=== PATIENT | male | born 1965 | race Caucasian/White ===

== ENCOUNTER 2022-05-07 10:45 | Emergency (ER) | payer MEDICARE, SELFPAY ==
[2022-05-07 10:53] VITALS: PULSE 115; RESP 18; TEMP 36.8; O2SAT 96; BMI 29.5
--- NOTE | 2022-05-07 11:16 | ED_ITS ---
HPI - Abdominal Pain General: Chief Complaint: Abdominal Pain Stated Complaint: back, abd pain Time Seen by Provider: 05/07/22 10:58 Source: patient Mode of arrival: ambulatory Limitations: no limitations History of Present Illness: 57yo male complaints of abd pain that radiates into his back. No chest pain or shortness of breath. He has not been taking any of his medications. He is supposed to be on a PPI. He has not noticed anything that exacerbates or relieves. No hematemesis coffee-ground emesis no medic easy melena. MD elicited complaint: abdominal pain Pertinent past history: none Onset (ago): minute(s) Pain Consistency: constant Location: None Severity: mild Quality: cramping Radiation: none Exacerbating factors: nothing Relieving factors: nothing Associated Symptoms: Denies anorexia, belching, bloating, change in bowel habits, change in stool character, chills, coffee ground emesis, constipation, GI cramping, diarrhea, dyspepsia, dysuria, excessive flatus, fever(s), hea rtburn, hematochezia, hematuria, hematemesis, fecal incontinence, loose stools, melena, nausea, poor appetite, syncope and vomiting Review of Systems Const: Denies: fever(s), chills, fatigue or malaise ENMT: Denies: throat pain, ear or mastoid pain, nasal discharge or nasal congestion Card: Denies: chest pain or syncope Resp: Denies: dyspnea, productive cough or non-productive cough GI: Reports: abdominal pain; Denies: nausea, vomiting, hematemesis, coffee ground emesis, heartburn, diarrhea, constipation, bloating, GI cramping, belching, excessive flatus, fecal incontinence, change in bowel habits, change in stool character, hematochezia or melena : Denies: flank pain, difficulty urinating, dysuria, urinary frequency, urinary urgency or hematuria Skin/Breast: Denies: rash or pruritus PFSH ED PFSH: Medical History (Updated 05/18/22 @ 06:44 by Priyank Mackay DO) Diabetes Dyspepsia Physical Exam Const: COMMON NORMALS: no acute distress GENERAL APPEARANCE: cooperative and comfortable ORIENTATION/CONSCIOUSNESS: Yes awake, Yes oriented to person, Yes oriented to place and Yes oriented to time HENMT: COMMON NORMALS: normocephalic, atraumatic, hearing grossly normal bilaterally, external ears normal, EAC's normal, TM's normal bilaterally, Normal nasal mucous membranes and turbinates present, moist oral mucous membranes and oropharynx normal HEAD & SCALP: normocephalic and atraumatic NOSE: Normal nasal mucous membranes and turbinates present EXTERNAL EAR: Yes external ears normal EXTERNAL AUDITORY CANAL: EAC's normal TYMPANIC MEMBRANE: TM's normal bilaterally Eye: COMMON NORMALS: Equal, round and reactive pupils present, EOMs intact bilaterally, conjunctivae normal and no scleral icterus CONJUNCTIVA: Yes conjunctivae normal PUPIL: Yes Equal, round and reactive pupils present Neck/C-Spine: COMMON NORMALS: full ROM, no lymphadenopathy, supple and no JVD Lymph: LYMPHATIC: no lymphadenopathy noted and no lymphedema noted Resp: COMMON NORMALS: normal respiratory effort, No retractions, No use of accessory muscles and clear to auscultation bilaterally AUSCULTATION: clear to auscultation bilaterally Cardio: COMMON NORMALS: no JVD, regular rate, regular rhythm and No murmurs present (Cardio) RATE: regular rate RHYTHM: regular rhythm GI: COMMON NORMALS: Soft to palpation and No hepatosplenomegaly present AUSCULTATION: Yes normoactive bowel sounds PALPATION: Yes Soft to palpation, No Tenderness to palpation present (GI), No Guarding due to palpation present (GI) and Yes No hepatosplenomegaly present Extremity: COMMON NORMALS: normal to inspection, capillary refill normal, no clubbing, cyanosis or edema, no calf tenderness and no pedal edema Neuro: SENSORIUM/ORIENTATION: Yes oriented to person, Yes oriented to place and Yes oriented to time Skin: COMMON NORMALS: no rashes or lesions noted GENERAL SKIN EXAM: no rashes or lesions noted Course Vital Signs: Vital signs: Vital Signs Temperature 98.2 F 05/07/22 10:53 Pulse Rate 69 05/07/22 15:03 Respiratory Rate 18 05/07/22 15:03 Blood Pressure 117/72 05/07/22 11:30 Pulse Oximetry 97 05/07/22 11:30 Oxygen Delivery Me thod 05/07/22 11:30 MDM - Abdominal Pain Medical Decision Making Follow-up with primary care for further evaluation. Labs and imaging reviewed. Medical Records I reviewed the patient's medical records. Lab Data : 05/07/22 11:39 05/07/22 11:39 Labs/Radiology: Laboratory Results WBC 5.9 10^3/uL (4.0-10.0) 05/07/22 11:39 RBC 4.99 10^6/uL (4.1-5.3) 05/07/22 11:39 Hgb 15.9 g/dL (11.7-16.6) 05/07/22 11:39 Hct 47.6 % (42.0-52.0) 05/07/22 11:39 MCV 95.4 fl (80-94) H 05/07/22 11:39 MCH 31.9 pg (28.0-34.0) 05/07/22 11:39 MCHC 33.4 g/dL (30.0-36.0) 05/07/22 11:39 RDW 12.6 % (12.1-15.1) 05/07/22 11:39 Plt Count 180 10^3/cmm (130-400) 05/07/22 11:39 MPV 11.0 fL (7.4-10.4) H 05/07/22 11:39 Neut % (Auto) 41.9 % 05/07/22 11:39 Lymph % (Auto) 45.0 % 05/07/22 11:39 Crowley % (Auto) 11.4 % 05/07/22 11:39 Eos % (Auto) 0.5 % 05/07/22 11:39 Baso % (Auto) 0.7 % 05/07/22 11:39 Neut # (Auto) 2.46 10^3/uL (1.8-7.7) 05/07/22 11:39 Lymph # (Auto) 2.6 10^3/uL (0.8-4.8) 05/07/22 11:39 Crowley # (Auto) 0.7 10^3/uL (0.2-0.9) 05/07/22 11:39 Eos # (Auto) 0.0 10^3/uL (0.0-0.8) 05/07/22 11:39 Baso # (Auto) 0.0 10^3/uL (0.0-0.1) 05/07/22 11:39 Nucleated RBC % (auto) 0 % 05/07/22 11:39 Nucleated RBCs # 0.0 /100WBC 05/07/22 11:39 Sodium 135 mmol/L (136-145) L 05/07/22 11:39 Potassium 4.9 mmol/L (3.5-5.1) 05/07/22 11:39 Chloride 97 mmol/L (98-107) L 05/07/22 11:39 Carbon Dioxide 28 mmol/L (22-29) 05/07/22 11:39 Anion Gap 14.9 (5-19) 05/07/22 11:39 BUN 12 mg/dL (6-20) 05/07/22 11:39 Creatinine 0.8 mg/dL (0.7-1.2) 05/07/22 11:39 GFR Calculation 100.4 mL/min (90-130) 05/07/22 11:39 Glucose 337 mg/dL (65-115) H 05/07/22 11:39 Calculated Osmolality 293 mOsm/kg (285-295) 05/07/22 11:39 Calcium 9.0 mg/dL (8.5-10.5) 05/07/22 11:39 Total Bilirubin 0.3 mg/dL (0.15-1.2) 05/07/22 11:39 AST 18 U/L (0-40) 05/07/22 11:39 ALT 14 U/L (0-41) 05/07/22 11:39 Alkaline Phosphatase 112 U/L (40-130) 05/07/22 11:39 Troponin T Gen 5 ng/L 15 ng/L (0-15) 05/07/22 16:56 Total Protein 6.4 g/dL (6.6-8.7) L 05/07/22 11:39 Albumin 4.1 g/dL (3.5-5.2) 05/07/22 11:39 Globulin 2.3 g/dL (1.3-4.6) 05/07/22 11:39 Lipase 20 U/L (13-60) 05/07/22 11:39 Urine Color Yellow (Yellow) 05/07/22 13:29 Urine Appearance Clear (CLEAR) 05/07/22 13:29 Urine pH 5 (5-7) 05/07/22 13:29 Ur Specific Douglas 1.015 (1.005-1.030) 05/07/22 13:29 Urine Protein Neg (Negative) 05/07/22 13:29 Urine Glucose (UA) 4+ (Normal) H 05/07/22 13:29 Urine Ketones Negative (Negative) 05/07/22 13:29 Urine Blood Neg (Negative) 05/07/22 13:29 Urine Nitrate Negative (Negative) 05/07/22 13:29 Urine Bilirubin Neg (Negative) 05/07/22 13:29 Urine Urobilinogen 1 mg/dL (Negative) H 05/07/22 13:29 Ur Leukocyte Esterase Negative (Negative) 05/07/22 13:29 Discharge Plan Discharge Patient Disposition: Home Clinical Impression: Diabetic gastroparesis Condition: Stable Prescriptions: New Protonix 40 mg tablet,delayed release (DR/EC) 40 mg PO DAILY Qty: 30 0RF Discharge Orders: Discharge ED (Routine); Ordered 05/07/22 Ordered By: Priyank Mackay Referrals: Taina Hansen APN [Primary Care Provider] - Discharge Diet: Usual diet Discharge Activity: Resume usual activity Patient Instructions: Opioid Safety Activity Restrictions/Additional Instructions: Up with primary care within the next week Coding Level of Care Code ED Internet Marketing Manager for [employer]
[2022-05-07 11:30] VITALS: BP 117/72; PULSE 74; RESP 15; O2SAT 97
--- NOTE | 2022-05-07 11:33 | ECG_ITS ---
[facility] [place] Date: 2022-05-07 Pat Name: Chema Murray Department: Room: Gender: Male Manager Of International: : 1965 Requested By: Priyank Ortiz Order Number: [id number] Justino MD: Tanya Hammer M.D. Measurements Intervals [place] Rate: 76 P: 60 CT: 138 QRS: 79 QRSD: 99 T: 60 QT: 385 QTc: 434 Interpretive Statements SINUS RHYTHM Compared to ECG 02/10/2015 05:34:38 Indeterminate axis no longer present Incomplete right bundle-branch block no longer present Myocardial infarct finding no longer present Electronically Signed On 05-08-2022 13:07:53 CDT by Tanya Hammer M.D. [id number]
[2022-05-07 11:55] LABS: Basophils % 0.7 %; Eosinophils % 0.5 %; Hematocrit 47.6 % (42.0-52.0); Hemoglobin 15.9 g/dL (11.7-16.6); Lymphocytes # 2.6 10^3/uL (0.8-4.8); Mean Corpuscular HGB Conc 33.4 g/dL (30.0-36.0); Mean Corpuscular Hemoglobin 31.9 pg (28.0-34.0); Mean Corpuscular Volume 95.4 fl (80-94); Monocytes # 0.7 10^3/uL (0.2-0.9); Monocytes % 11.4 %; Neutrophils # 2.46 10^3/uL (1.8-7.7); Neutrophils % 41.9 %; Nucleated Red Blood Cells % 0 %; Platelet Count 180 10^3/cmm (130-400); Red Blood Count 4.99 10^6/uL (4.1-5.3); Red Cell Distribution Width 12.6 % (12.1-15.1); White Blood Count 5.9 10^3/uL (4.0-10.0)
[2022-05-07] MEDS: sodium chloride 0.9% 1,000 ML 999 ML IV ×3 (12:04→14:13)
[2022-05-07 12:19] LABS: Alanine Aminotransferase 14 U/L (0-41); Albumin Level 4.1 g/dL (3.5-5.2); Alkaline Phosphatase 112 U/L (40-130); Anion Gap 14.9 (5-19); Aspartate Amino Transferase 18 U/L (0-40); Blood Urea Nitrogen 12 mg/dL (6-20); Carbon Dioxide 28 mmol/L (22-29); Chloride 97 mmol/L (98-107); Creatinine Clr Calc Pharmacy 116.1478; Globulin 2.3 g/dL (1.3-4.6); Glomerular Filtration Rate 100.4 mL/min (90-130); Glucose 337 mg/dL (65-115); Lipase 20 U/L (13-60); Osmolality Calculated 293 mOsm/kg (285-295); Potassium 4.9 mmol/L (3.5-5.1); Sodium 135 mmol/L (136-145); Total Bilirubin 0.3 mg/dL (0.15-1.2); Total Protein 6.4 g/dL (6.6-8.7)
[2022-05-07 13:00] VITALS: PULSE 70; RESP 12
[2022-05-07 14:00] VITALS: PULSE 67; RESP 12
[2022-05-07 14:06] LABS: Add Urine Microscopic? NO; Charge for UA Resulting for Rev
[2022-05-07 14:08] LABS: Bilirubin Urine Neg (Negative); Blood Urine Neg (Negative); Glucose Urine UA 4+ (Normal); Ketones Urine Negative (Negative); Leukocyte Esterase Urine Negative (Negative); Nitrate Urine Negative (Negative); Protein Urine Neg (Negative); Specific Gravity, Urine 1.015 (1.005-1.030); Urine Appearance Clear (CLEAR); Urine Color Yellow (Yellow); Urobilinogen Urine 1 mg/dL (Negative); pH Urine 5 (5-7)
[2022-05-07 15:03] VITALS: PULSE 69; RESP 18
[2022-05-07 15:11] LABS: Troponin T (5th) Once 24 ng/L (0-15)
[2022-05-07 17:28] LABS: Troponin T (5th) Once 15 ng/L (0-15)
== END 2022-05-07 19:43 | disposition home or self-care (01) ==
PROVIDERS: Emergency Provider Family Medicine; PCP Nurse Practitioner Family
DX: E11.43 Type 2 diabetes mellitus with diabetic autonomic (poly)neuropathy (principal); K31.84 Gastroparesis
CPT/HCPCS: 80053; 81003; 83690; 84484; 85025; 93005; 96360; 99284; J7030

== ENCOUNTER → 2024-07-23 16:48 | Outpatient (BNVA) | payer MEDICARE, MEDICAID, SELFPAY | PROVIDERS: PCP Clinical Nurse Specialist Adult Health; Visit Provider Nurse Practitioner Family | DX: I25.110 Atherosclerotic heart disease of native coronary artery with unstable angina pectoris (principal); I50.20 Unspecified systolic (congestive) heart failure; I25.10 Atherosclerotic heart disease of native coronary artery without angina pectoris | CPT/HCPCS: 36415; 80048; 99214 ==

== ENCOUNTER → 2024-09-12 09:01 | Outpatient (BNVA) | payer MEDICARE, MEDICAID, SELFPAY | PROVIDERS: PCP Clinical Nurse Specialist Adult Health; Visit Provider Clinical Nurse Specialist Adult Health | DX: I10 Essential (primary) hypertension; E11.42 Type 2 diabetes mellitus with diabetic polyneuropathy; I50.20 Unspecified systolic (congestive) heart failure; I25.10 Atherosclerotic heart disease of native coronary artery without angina pectoris; Z91.148 Patient's other noncompliance with medication regimen for other reason | CPT/HCPCS: 80053; 83036; 83880; 85025 ==

== ENCOUNTER → 2024-09-23 15:02 | Outpatient (BNVA) | payer MEDICARE, MEDICAID, SELFPAY | PROVIDERS: PCP Clinical Nurse Specialist Adult Health; Visit Provider Internal Medicine Cardiovascular Disease | DX: I25.110 Atherosclerotic heart disease of native coronary artery with unstable angina pectoris (principal); I25.2 Old myocardial infarction; I11.0 Hypertensive heart disease with heart failure; I50.9 Heart failure, unspecified; R93.1 Abnormal findings on diagnostic imaging of heart and coronary circulation | CPT/HCPCS: 99214 ==

== ENCOUNTER → 2024-10-03 10:56 | Outpatient (BNVA) | payer MEDICARE, SELFPAY | PROVIDERS: PCP Clinical Nurse Specialist Adult Health; Visit Provider Podiatrist Foot & Ankle Surgery | DX: E11.42 Type 2 diabetes mellitus with diabetic polyneuropathy (principal); L60.3 Nail dystrophy; L84 Corns and callosities; I87.8 Other specified disorders of veins; E11.8 Type 2 diabetes mellitus with unspecified complications; G62.9 Polyneuropathy, unspecified; I87.2 Venous insufficiency (chronic) (peripheral); Z79.4 Long term (current) use of insulin | CPT/HCPCS: 11056; 11721; 99203 ==

== ENCOUNTER → 2024-10-11 08:45 | Outpatient (BNVA) | payer MEDICARE, SELFPAY | PROVIDERS: PCP Clinical Nurse Specialist Adult Health; Visit Provider Internal Medicine | DX: E11.42 Type 2 diabetes mellitus with diabetic polyneuropathy (principal); G62.9 Polyneuropathy, unspecified; I87.2 Venous insufficiency (chronic) (peripheral); E78.2 Mixed hyperlipidemia; I25.110 Atherosclerotic heart disease of native coronary artery with unstable angina pectoris | CPT/HCPCS: 99204 ==

== ENCOUNTER → 2024-10-16 08:08 | Outpatient (BNVA) | payer MEDICARE, MEDICAID, SELFPAY | PROVIDERS: PCP Clinical Nurse Specialist Adult Health; Visit Provider Internal Medicine | DX: E11.42 Type 2 diabetes mellitus with diabetic polyneuropathy (principal); G62.9 Polyneuropathy, unspecified; I87.2 Venous insufficiency (chronic) (peripheral) | CPT/HCPCS: 80053; 84681; 86337; 86341 ==

== ENCOUNTER 2024-11-01 09:28 | Outpatient (CLI) | payer MEDICARE, MEDICAID, SELFPAY ==
--- NOTE | 2024-11-01 10:00 | USCV_ITS ---
Chema Murray Age: 59 Gender: M : 1965 Exam Date: 11/01/2024 09:52 Ordering Phys: Ramon Carmona MD ([email or web address]) Technologist: [place] [facility] [place]: BP: 100 / 60 HR: 76 Rhythm: Sinus Technical Quality: Adequate MEASUREMENTS (Male / Female) Normal Values 2D ECHO LVOT Diameter 2.0 cm LV Ejection Fraction MOD 4C 33.0 % LV Ejection Fraction MOD 2C 39.1 % LV Ejection Fraction 2C AL 38.0 % LA Diameter 3.7 cm RA Systolic Volume 4C AL 36.7 ml RA Systolic Volume 4C MOD 37.0 ml LA Sys Volume AL 72.9 cm cubed LA Sys Volume Index AL 35.0 cm cubed/m squared Aorta at Sinotubular Diameter 2.3 cm IVC Diameter 1.6 cm M-MODE LA Ao Ratio MM 1.3 AV Cusp Separation MM 1.8 cm DOPPLER AV Peak Velocity 118.0 cm/s LVOT Peak Velocity 79.0 cm/s AV Area Cont Eq vti 2.7 cm squared AV Area Cont Eq pk 2.2 cm squared MV Peak Velocity 126.0 cm/s MV Area PHT 5.1 cm squared Mitral E to A Ratio 1.3 TR Peak Velocity 202.0 cm/s TR Peak Gradient 16.3 mmHg TV Peak E Velocity 53.0 cm/s PV Peak Velocity 97.8 cm/s FINDINGS Left Ventricle Left ventricle is normal in size. LV systolic function is moderately reduced with EF of 35-40%. Moderate global hypokinesis. Right Ventricle Grossly normal Right Atrium Normal in size Left Atrium Normal in size Mitral Valve Structurally normal mitral valve. Mild mitral regurgitation. Aortic Valve Structurally normal aortic valve. No significant stenosis. Tricuspid Valve Insufficient TR jet to evaluate RVSP. Pulmonic Valve Not well visualized Pericardium Small to moderate sized pericardial effusion Aorta Normal in size IVC Appears to be normal CONCLUSIONS LV systolic function is moderately reduced with EF of 35-40% Mild mitral regurgitation. Small to moderate-sized pericardial effusion. Compared to prior echocardiogram from 06/2024, LV systolic function has improved now Rajinder Mcarthur MD (Electronically Signed) Final Date: 06 November 2024 12:42 S
== END 2024-11-01 09:29 | disposition home or self-care (01) ==
LOC: RAD 09:28
PROVIDERS: PCP Clinical Nurse Specialist Adult Health; Visit Provider Internal Medicine Cardiovascular Disease
DX: R06.02 Shortness of breath (principal); R93.1 Abnormal findings on diagnostic imaging of heart and coronary circulation; I34.0 Nonrheumatic mitral (valve) insufficiency; I31.39 Other pericardial effusion (noninflammatory)
CPT/HCPCS: 93306

== ENCOUNTER 2024-11-06 09:21 | Outpatient (CLI) | payer MEDICARE, SELFPAY ==
--- NOTE | 2024-11-06 09:30 | USR_ITS ---
PROCEDURE INFORMATION: Exam: US Duplex Lower Extremity Veins, Bilateral Exam date and time: 11/06/2024 9:37 AM Age: 59 years old Clinical indication: Swelling (edema) of limb; Lower extremity, bilateral; Additional info: Swelling in legs and feet TECHNIQUE: Imaging protocol: Real-time duplex ultrasound of the bilateral extremities with 2-D stapleton scale, color Doppler flow and spectral waveform analysis including responses to compression and other maneuvers (when performed) with image documentation. Complete exam focused on the lower extremity veins. COMPARISON: No relevant prior studies available. FINDINGS: Right deep veins: Unremarkable. The common femoral, femoral, proximal profunda femoral and popliteal veins are patent without thrombus. Normal Doppler waveforms. Normal compressibility and augmentation response. No significant reflux. Left deep veins: Unremarkable. The common femoral, femoral, proximal profunda femoral and popliteal veins are patent without thrombus. Normal Doppler waveforms. Normal compressibility and augmentation response. No significant reflux Superficial veins: Greater saphenous veins at the saphenofemoral junctions are patent bilaterally without thrombus. No significant reflux. Soft tissues: Unremarkable. US/CV tessy dup insumary anne [facility] [id number] IMPRESSION: No evidence of deep vein thrombosis.
== END 2024-11-06 09:22 | disposition home or self-care (01) ==
LOC: RAD 09:25
PROVIDERS: PCP Clinical Nurse Specialist Adult Health; Visit Provider Podiatrist Foot & Ankle Surgery
DX: E11.8 Type 2 diabetes mellitus with unspecified complications (principal); I87.8 Other specified disorders of veins; E11.42 Type 2 diabetes mellitus with diabetic polyneuropathy
CPT/HCPCS: 93970

== ENCOUNTER → 2024-12-10 14:30 | Outpatient (BNVA) | payer MEDICARE, SELFPAY | PROVIDERS: PCP Clinical Nurse Specialist Adult Health; Visit Provider Podiatrist Foot & Ankle Surgery | DX: E11.42 Type 2 diabetes mellitus with diabetic polyneuropathy (principal); L60.3 Nail dystrophy; G62.9 Polyneuropathy, unspecified; I87.2 Venous insufficiency (chronic) (peripheral); Z79.4 Long term (current) use of insulin | CPT/HCPCS: 11056; 11721 ==

== ENCOUNTER 2024-12-27 06:10 | Outpatient (CLI) | payer MEDICARE, SELFPAY ==
--- NOTE | 2024-12-27 06:15 | USCV_ITS ---
Chema Murray Age: 59 Gender: M : 1965 Exam Date: 12/27/2024 06:28 Ordering Phys: Mariana Hannah Technologist: Familia Lai Exam Location: [facility] [place] Indication: small to moderate pericardial effusion BP: 100 / 60 HR: Rhythm: Sinus Technical Quality: Adequate MEASUREMENTS (Male / Female) Normal Values 2D ECHO LV Diastolic Diameter PLAX 6.0 cm 4.2 - 5.9 / 3.9 - 5.3 cm IVS Diastolic Thickness 0.8 cm 0.6 - 1.0 / 0.6 - 0.9 cm IVS Systolic Thickness 0.9 cm LVPW Diastolic Thickness 2.0 cm 0.6 - 1.0 / 0.6 - 0.9 cm LVPW Systolic Thickness 2.4 cm LVOT Diameter 2.0 cm LV Ejection Fraction 2D Teich 30.1 % LV Ejection Fraction MOD 4C 36.1 % LV Ejection Fraction MOD 2C 32.8 % LV Ejection Fraction 2C AL 33.1 % LA Diameter 3.2 cm RA Systolic Volume 4C AL 25.7 ml RA Systolic Volume 4C MOD 26.0 ml LA Sys Volume AL 49.7 cm cubed LA Sys Volume Index AL 23.8 cm cubed/m squared Aorta at Sinotubular Diameter 2.5 cm IVC Diameter 1.6 cm M-MODE LA Ao Ratio MM 1.7 AV Cusp Separation MM 1.6 cm FINDINGS Left Ventricle Moderately increased left ventricular cavity size. Left ventricular ejection fraction is estimated at 30%. There is mid to distal anterior , septal apical akinesis suggestive of LAD lesion and old myocardial infarction. Right Ventricle Right Atrium Left Atrium Mitral Valve Aortic Valve Tricuspid Valve Pulmonic Valve Pericardium No pericardial or pleural effusion. Aorta IVC CONCLUSIONS Limited echocardiogram Moderately increased left ventricular cavity size. Left ventricular ejection fraction is estimated at 30%. There is mid to distal anterior , septal apical akinesis suggestive of LAD lesion and old myocardial infarction. No pericardial or pleural effusion. Ramon Carmona MD (Electronically Signed) Final Date: 19 Jan 2025 16:59 S
== END 2024-12-27 06:11 | disposition home or self-care (01) ==
PROVIDERS: PCP Clinical Nurse Specialist Adult Health; Visit Provider Nurse Practitioner Family
DX: I31.39 Other pericardial effusion (noninflammatory) (principal); I51.7 Cardiomegaly; R93.1 Abnormal findings on diagnostic imaging of heart and coronary circulation
CPT/HCPCS: 93308

== ENCOUNTER → 2024-12-30 15:06 | Outpatient (BNVA) | payer MEDICARE, SELFPAY | PROVIDERS: PCP Clinical Nurse Specialist Adult Health; Visit Provider Internal Medicine Cardiovascular Disease | DX: I11.0 Hypertensive heart disease with heart failure (principal); I50.20 Unspecified systolic (congestive) heart failure; I31.39 Other pericardial effusion (noninflammatory); I25.5 Ischemic cardiomyopathy; I34.0 Nonrheumatic mitral (valve) insufficiency; I25.2 Old myocardial infarction; I25.10 Atherosclerotic heart disease of native coronary artery without angina pectoris | CPT/HCPCS: 99214 ==

== ENCOUNTER → 2025-01-01 08:11 | Outpatient (BNVA) | payer MEDICARE, SELFPAY | PROVIDERS: PCP Clinical Nurse Specialist Adult Health; Visit Provider Internal Medicine | DX: I31.39 Other pericardial effusion (noninflammatory) (principal); I25.5 Ischemic cardiomyopathy; I10 Essential (primary) hypertension; I25.110 Atherosclerotic heart disease of native coronary artery with unstable angina pectoris | CPT/HCPCS: 82550 ==

== ENCOUNTER → 2025-01-03 08:38 | Outpatient (BNVA) | payer MEDICARE, SELFPAY | PROVIDERS: PCP Clinical Nurse Specialist Adult Health; Visit Provider Clinical Nurse Specialist Adult Health | DX: E11.42 Type 2 diabetes mellitus with diabetic polyneuropathy (principal); E11.9 Type 2 diabetes mellitus without complications | CPT/HCPCS: 80053; 80061; 82043; 82607; 83036; 85025 ==

== ENCOUNTER → 2025-01-08 11:42 | Outpatient (BNVA) | payer MEDICARE, SELFPAY | PROVIDERS: PCP Clinical Nurse Specialist Adult Health; Visit Provider Internal Medicine | DX: E11.42 Type 2 diabetes mellitus with diabetic polyneuropathy (principal); E78.2 Mixed hyperlipidemia | CPT/HCPCS: 99214 ==

== ENCOUNTER → 2025-03-10 14:33 | Outpatient (BNVA) | payer MEDICARE, SELFPAY | PROVIDERS: PCP Clinical Nurse Specialist Adult Health; Visit Provider Internal Medicine Cardiovascular Disease | DX: I11.0 Hypertensive heart disease with heart failure (principal); I50.20 Unspecified systolic (congestive) heart failure; I25.10 Atherosclerotic heart disease of native coronary artery without angina pectoris; I34.0 Nonrheumatic mitral (valve) insufficiency; I25.2 Old myocardial infarction; Z87.891 Personal history of nicotine dependence | CPT/HCPCS: 99214 ==

== ENCOUNTER → 2025-03-11 15:25 | Outpatient (BNVA) | payer MEDICARE, SELFPAY | PROVIDERS: PCP Clinical Nurse Specialist Adult Health; Visit Provider Podiatrist Foot & Ankle Surgery | DX: E11.42 Type 2 diabetes mellitus with diabetic polyneuropathy (principal); L60.3 Nail dystrophy; G62.9 Polyneuropathy, unspecified; I87.2 Venous insufficiency (chronic) (peripheral); Z79.4 Long term (current) use of insulin | CPT/HCPCS: 11721; 99213 ==

== ENCOUNTER → 2025-04-15 12:14 | Outpatient (BNVA) | payer MEDICARE, SELFPAY | PROVIDERS: PCP Clinical Nurse Specialist Adult Health; Visit Provider Internal Medicine | DX: E11.42 Type 2 diabetes mellitus with diabetic polyneuropathy (principal); E78.2 Mixed hyperlipidemia | CPT/HCPCS: 99214 ==

== ENCOUNTER → 2025-05-02 10:39 | Outpatient (BNVA) | payer MEDICARE, SELFPAY | PROVIDERS: PCP Clinical Nurse Specialist Adult Health; Visit Provider Nurse Practitioner Family | DX: F42.4 Excoriation (skin-picking) disorder (principal); L90.5 Scar conditions and fibrosis of skin; L21.8 Other seborrheic dermatitis; L72.0 Epidermal cyst; D22.39 Melanocytic nevi of other parts of face; D48.5 Neoplasm of uncertain behavior of skin | CPT/HCPCS: 11104; 99214 ==

== ENCOUNTER → 2025-05-14 15:08 | Outpatient (BNVA) | payer MEDICARE, SELFPAY | PROVIDERS: PCP Clinical Nurse Specialist Adult Health; Visit Provider Podiatrist Foot & Ankle Surgery | DX: E11.8 Type 2 diabetes mellitus with unspecified complications (principal); L60.3 Nail dystrophy; E11.42 Type 2 diabetes mellitus with diabetic polyneuropathy; G62.9 Polyneuropathy, unspecified; I87.2 Venous insufficiency (chronic) (peripheral); Z79.4 Long term (current) use of insulin | CPT/HCPCS: 11721 ==

== ENCOUNTER → 2025-05-15 12:48 | Outpatient (BNVA) | payer MEDICARE, SELFPAY | PROVIDERS: PCP Clinical Nurse Specialist Adult Health; Visit Provider Nurse Practitioner Family | DX: L90.5 Scar conditions and fibrosis of skin (principal) | CPT/HCPCS: 99213 ==

== ENCOUNTER → 2025-06-11 08:43 | Outpatient (BNVA) | payer MEDICARE, SELFPAY | PROVIDERS: PCP Clinical Nurse Specialist Adult Health; Visit Provider Internal Medicine | DX: E11.42 Type 2 diabetes mellitus with diabetic polyneuropathy (principal) | CPT/HCPCS: 80053; 80061; 82043; 83036 ==

== ENCOUNTER → 2025-06-18 10:55 | Outpatient (BNVA) | payer MEDICARE, SELFPAY | PROVIDERS: PCP Clinical Nurse Specialist Adult Health; Visit Provider Internal Medicine | DX: E11.42 Type 2 diabetes mellitus with diabetic polyneuropathy (principal); G62.9 Polyneuropathy, unspecified; I87.2 Venous insufficiency (chronic) (peripheral); E78.2 Mixed hyperlipidemia; I25.110 Atherosclerotic heart disease of native coronary artery with unstable angina pectoris; Z79.4 Long term (current) use of insulin | CPT/HCPCS: 99214 ==

== ENCOUNTER → 2025-06-26 14:48 | Outpatient (BNVA) | payer MEDICARE, SELFPAY | PROVIDERS: PCP Clinical Nurse Specialist Adult Health; Visit Provider Clinical Nurse Specialist Adult Health | DX: E11.621 Type 2 diabetes mellitus with foot ulcer (principal); L97.519 Non-pressure chronic ulcer of other part of right foot with unspecified severity | CPT/HCPCS: 80053; 85025; 85651; 86140 ==

== ENCOUNTER 2025-07-03 14:33 | Outpatient (CLI) | payer MEDICARE, SELFPAY ==
--- NOTE | 2025-07-03 14:41 | XR_ITS ---
WS: [id number] Exam: XR foot RT min 3V* [id number] Date/Time of Exam: 07/03/2025 2:51 PM Reason For Exam: S90.424A - Blister (nonthermal), right lesser toe(s), ini... No fracture identified. Minimal degenerative changes in the IP joints, first MP joint and midfoot joints. No soft tissue foreign bodies. XR/XR foot RT min 3V* [id number] IMPRESSION: 1. Mild DJD. No fracture.
== END 2025-07-03 14:34 | disposition home or self-care (01) ==
PROVIDERS: PCP Clinical Nurse Specialist Adult Health; Visit Provider Clinical Nurse Specialist Adult Health
DX: L08.9 Local infection of the skin and subcutaneous tissue, unspecified (principal); S90.424A Blister (nonthermal), right lesser toe(s), initial encounter; X58.XXXA Exposure to other specified factors, initial encounter; M19.071 Primary osteoarthritis, right ankle and foot; E11.52 Type 2 diabetes mellitus with diabetic peripheral angiopathy with gangrene; E11.621 Type 2 diabetes mellitus with foot ulcer; L97.511 Non-pressure chronic ulcer of other part of right foot limited to breakdown of skin; L97.521 Non-pressure chronic ulcer of other part of left foot limited to breakdown of skin
CPT/HCPCS: 73630; 97597; A6212; A6446

== ENCOUNTER → 2025-07-09 14:41 | Outpatient (BNVA) | payer MEDICARE, SELFPAY | PROVIDERS: PCP Clinical Nurse Specialist Adult Health; Visit Provider Thoracic Surgery (Cardiothoracic Vascular Surgery) | DX: E11.52 Type 2 diabetes mellitus with diabetic peripheral angiopathy with gangrene (principal); E11.621 Type 2 diabetes mellitus with foot ulcer; L97.511 Non-pressure chronic ulcer of other part of right foot limited to breakdown of skin; Z09 Encounter for follow-up examination after completed treatment for conditions other than malignant neoplasm | CPT/HCPCS: 97597 ==

== ENCOUNTER → 2025-07-16 14:21 | Outpatient (BNVA) | payer MEDICARE, SELFPAY | PROVIDERS: PCP Clinical Nurse Specialist Adult Health; Visit Provider Podiatrist Foot & Ankle Surgery | DX: E11.8 Type 2 diabetes mellitus with unspecified complications (principal); L60.3 Nail dystrophy; E11.42 Type 2 diabetes mellitus with diabetic polyneuropathy; G62.9 Polyneuropathy, unspecified; I87.2 Venous insufficiency (chronic) (peripheral); Z79.4 Long term (current) use of insulin | CPT/HCPCS: 11721 ==

== ENCOUNTER → 2025-07-17 14:51 | Outpatient (BNVA) | payer MEDICARE, SELFPAY | PROVIDERS: PCP Clinical Nurse Specialist Adult Health; Visit Provider Thoracic Surgery (Cardiothoracic Vascular Surgery) | DX: Z09 Encounter for follow-up examination after completed treatment for conditions other than malignant neoplasm (principal); Z87.2 Personal history of diseases of the skin and subcutaneous tissue | CPT/HCPCS: 99212 ==